=== PATIENT | male | born 1980 | race Asian ===

== ENCOUNTER 2020-07-15 16:57 | Emergency (ER) | payer OTHER ==
[~2020-07-15] VITALS: Ht 172.7 cm; Wt 82.1 kg
[2020-07-15] MEDS ORDERED: AUGMENTIN 875-1 EACH PO (19:21)
[2020-07-15 20:05] VITALS: BP 118/74
== END 2020-07-15 20:14 | disposition home or self-care (01) ==
LOC: ER 16:57
DX: S71.112A Laceration without foreign body, left thigh, initial encounter (principal); S81.812A Laceration without foreign body, left lower leg, initial encounter; S51.851A Open bite of right forearm, initial encounter; W54.0XXA Bitten by dog, initial encounter; Y93.89 Activity, other specified; Y92.89 Other specified places as the place of occurrence of the external cause; Y99.8 Other external cause status